=== PATIENT | male | born 1980 | race Caucasian/White ===

== ENCOUNTER 2020-05-27 11:46 | Emergency (ER) | payer OTHER ==
[~2020-05-27] VITALS: Ht 185.4 cm; Wt 111.1 kg
[2020-05-27] MEDS ORDERED: ADDERALL 10 MG10 MG PO (11:59)
[2020-05-27] MEDS ORDERED: CITALOPRAM HBR40 MG PO (11:59)
[2020-05-27] MEDS ORDERED: HYDROCODON-ACE1 EAC7 PO (13:32)
[2020-05-27 13:42] VITALS: BP 150/91
== END 2020-05-27 13:43 | disposition home or self-care (01) ==
LOC: M.ERS 11:46
DX: S92.002A Unspecified fracture of left calcaneus, initial encounter for closed fracture (principal); Z79.899 Other long term (current) drug therapy; W10.9XXA Fall (on) (from) unspecified stairs and steps, initial encounter; Y93.89 Activity, other specified; Y92.89 Other specified places as the place of occurrence of the external cause; Y99.8 Other external cause status